=== PATIENT | female | born 1995 | race Two or more races ===

== ENCOUNTER → 2024-11-02 | Outpatient (CLI) | payer OTHER, SELFPAY ==
--- NOTE | 2024-11-02 14:09 | XR_ITS ---
Examination: PA lateral chest 2 views TECHNIQUE: Upright PA lateral chest 2 views Date and time: November 02, 2024 1415 hours Comparison June 21, 2015 INDICATIONS: History pneumonia FINDINGS: Normal heart size Lungs are clear. The osseous structures are intact IMPRESSION: No active disease
== END | disposition home or self-care (01) ==
PROVIDERS: PCP Family Medicine; Referring Provider Family Medicine; Visit Provider Family Medicine
DX: J45.909 Unspecified asthma, uncomplicated (principal)
CPT/HCPCS: 71046

== ENCOUNTER → 2025-03-15 | Outpatient (CLI) | payer OTHER, SELFPAY ==
--- NOTE | 2025-03-15 12:30 | XR_ITS ---
Examination: Pelvic ultrasound, transabdominal, complete Technique: Transabdominal ultrasound of the pelvis performed using grayscale imaging Date and time of exam: March 15, 2025, 1227 hours INDICATIONS: Dysmenorrhea years FINDINGS: Uterus 9.7 cm endometrial stripe 10 mm No uterine mass or intrauterine gestation Right ovary 4.1 cm arterial flow small follicles Left ovary 3.2 cm arterial flow small follicles No fluid in the cul-de-sac IMPRESSION: No uterine mass or intrauterine gestation No adnexal mass
== END | disposition home or self-care (01) ==
LOC: CDIM 12:12
PROVIDERS: PCP Student in an Organized Health Care Education/Training Program; Referring Provider Family Medicine; Visit Provider Family Medicine
DX: N94.6 Dysmenorrhea, unspecified (principal)
CPT/HCPCS: 76856